=== PATIENT | female | born 1965 | race Caucasian/White ===

== ENCOUNTER 2017-03-01 17:16 | Emergency (ER) | payer OTHER ==
[~2017-03-01] VITALS: Ht 160 cm; Wt 59.0 kg
[~2017-03-01 17:16] MED LIST: ALPR0.5T PO; CIPR500T4 PO; CLON2TAB3 PO; DICY20TA59 PO; FLUO40CA10 PO; GABA300C PO; HYDR-3498 PO; HYDR-902 PO; METO10TA92 PO; NAPR-260 PO; NAPR-685 PO; OMEP20CA16 PO; TOPI50TA86 PO; TRAM50TA2 PO; TRAZ50TA18 PO; ZOLP5TAB PO
[2017-03-01 17:22] VITALS: Ht 160 cm; Wt 59.0 kg
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
[2017-03-01] MEDS ORDERED: ASPIRIN 325 MG TAB PO STA (19:42)
[2017-03-01] MEDS ORDERED: morphine 4 MG/ML VIAL IV STA (19:50)
[2017-03-01] MEDS ORDERED: LORAZEPAM 2 MG INJ IV ONE (20:00)
[2017-03-01] MEDS ORDERED: ALPRAZOLAM 1 MG TAB PO ONE (20:00)
[2017-03-01 20:15] LABS: BASOPHILS % 0.6 % (0.0-2.0); EOSINOPHILS % 0.3 % (0.0-7.0); HEMATOCRIT 41.7 % (37.0-47.0); HEMOGLOBIN 14.4 g/dl (12.0-16.0); LYMPHOCYTES # 1.1 10^3/ul (0.8-2.9); LYMPHOCYTES % 16.4 % (15.0-51.0); MEAN CORPUSCULAR HEMOGLOBIN 30.1 pg (29.0-33.0); MEAN CORPUSCULAR HGB CONC 34.5 g/dl (32.0-37.0); MEAN CORPUSCULAR VOLUME 87.2 fl (82.0-101.0); MEAN PLATELET VOLUME 10.9 fl (7.4-10.4); MONOCYTE # 0.3 10^3/ul (0.3-0.9); MONOCYTES % 4.2 % (0.0-11.0); NEUTROPHIL # 5.4 10^3/ul (1.6-7.5); NEUTROPHILS % 78.4 % (39.0-77.0); PLATELET COUNT 307 10^3/UL (140-415); RED BLOOD COUNT 4.78 10^6/ul (4.20-5.40); RED CELL DISTRIBUTION WIDTH 12.6 % (11.5-14.5); WHITE BLOOD COUNT 6.9 10^3/ul (4.8-10.8)
[2017-03-01 20:30] LABS: INR 0.9; PROTIME 12.1 Sec (12.2-14.2); PT RATIO 0.9
[2017-03-01 20:32] LABS: PARTIAL THROMBOPLASTIN TIME 27.3 Sec (25.0-35.0)
[2017-03-01 20:33] LABS: ANION GAP 24 (8-16); BLOOD UREA NITROGEN 8 mg/dl (7-20); CALCIUM 10.5 mg/dl (8.4-10.2); CARBON DIOXIDE 25 mmol/L (21-31); CHLORIDE 99 mmol/L (97-110); GLUCOSE 114 mg/dl (70-220); POTASSIUM 3.8 mmol/L (3.5-5.1); SODIUM 144 mmol/L (135-144)
[2017-03-01] MEDS ORDERED: TOPI-25 PO (20:42)
[2017-03-01] MEDS ORDERED: GABA300C16 PO (20:42)
[2017-03-01] MEDS ORDERED: ATEN-51 PO (20:43)
[2017-03-01 20:46] LABS: TROPONIN-I < 0.012 ng/ml (0.00-0.12)
--- NOTE | 2017-03-01 21:10 | RADRPT ---
PROCEDURE: XR Chest. CLINICAL INDICATION: Shortness of breath. Chest pain. TECHNIQUE: Single frontal chest x-ray. COMPARISON: Chest radiograph 12/27/2014. FINDINGS: The cardiomediastinal silhouette is unremarkable. Aortic atherosclerotic vascular calcifications are identified. Mild left basilar atelectasis is noted. No pneumothorax, pleural effusion or consolidation is seen. No acute osseous abnormality is noted. IMPRESSION: 1. Mild left basilar atelectasis. 2. Mild aortic atherosclerosis. 3. Otherwise no acute cardiopulmonary abnormality. RPTAT: HH .Arcadio Moreno MD, Date Time Electronically viewed and signed by .Arcadio Moreno MD, on 03/01/2017 21:10 .N/
[2017-03-01] MEDS ORDERED: HYDR25CA PO (21:44)
[2017-03-01] MEDS ORDERED: RANI150T9 PO (21:44)
[2017-03-01 22:07] VITALS: BP 110/78; PULSE 61; RESP 18; TEMP 98
== END 2017-03-01 22:37 | disposition home or self-care (01) ==
LOC: E/R 17:16
DX: R07.89 Other chest pain (principal); F41.9 Anxiety disorder, unspecified; I10 Essential (primary) hypertension; J45.909 Unspecified asthma, uncomplicated
CPT/HCPCS: 71010; 80048; 84484; 85025; 85610; 85730; 93005; 96374; 96375; Z7502; J2060; J2270

== ENCOUNTER 2018-04-03 12:10 | Emergency (ER) | END 2018-04-03 16:34 | disposition home or self-care (01) ==

== ENCOUNTER 2018-07-22 16:00 | Emergency (ER) | END 2018-07-22 20:02 | disposition home or self-care (01) ==

== ENCOUNTER 2018-10-23 14:39 | Emergency (ER) | payer SELFPAY ==
[~2018-10-23] VITALS: Ht 167.6 cm; Wt 66.8 kg
[~2018-10-23 14:39] MED LIST changes: +ACET500C5 PO; -ALPR0.5T PO; +ATEN-51 PO; -CIPR500T4 PO; -CLON2TAB3 PO; -DICY20TA59 PO; -FLUO40CA10 PO; -GABA300C PO; +GABA300C16 PO; -HYDR-3498 PO; -HYDR-902 PO; +HYDR25CA PO; +IBUP-1542 PO; -METO10TA92 PO; -NAPR-260 PO; -NAPR-685 PO; -OMEP20CA16 PO; +RANI150T35 PO; +TOPI100T11 PO; -TOPI50TA86 PO; -TRAZ50TA18 PO; -ZOLP5TAB PO
[2018-10-23 14:43] VITALS: Ht 167.6 cm; Wt 66.8 kg
[2018-10-23] MEDS ORDERED: LORAZEPAM 1 MG TAB PO ONE (17:00)
--- NOTE | 2018-10-23 18:09 | ERD ---
ER Documentation Chief Complaint Chief Complaint Complains of being anxious Hx of Anxiety HPI 53-year-old female coming in today with Chief Complaint: Anxiety History of Present Illness: Patient coming in today with complaint of anxiety for 3 days. Reports history of anxiety and panic attacks patient reporting no significant triggers or stressors.. States she is no longer have medication that she usually takes for anxiety. Review of systems: All systems were reviewed and are negative except for what is indicated in the history of present illness. Past Medical History: Hypertension surgical history includes clip placed on brain due to aneurysm; Social History: Patient denies tobacco, alcohol, elicit drug use Medications: None Allergies: NKDA Social Concerns: Denies ROS All systems reviewed and are negative except as per history of present illness. Medications Home Meds Active Scripts Lorazepam* (Lorazepam*) 1 Mg Tablet, 1 MG PO Q8, #10 TAB Prov:JENN SHAW NP 10/23/18 Acetaminophen* (Tylophen*) 500 Mg Capsule, 1 CAP PO Q6H PRN for PAIN AND OR ELEVATED TEMP, #20 CAP Prov:BILL CRUZ PA-C 07/22/18 Tramadol HCl (Tramadol HCl) 50 Mg Tablet, 50 MG PO Q4 PRN for PAIN, #15 TAB Prov:YEIMY BORDEN MD 04/03/18 Ibuprofen* (Motrin*) 600 Mg Tab, 600 MG PO Q6, #20 TAB Prov:YEIMY BORDEN MD 04/03/18 Hydroxyzine Pamoate* (Vistaril*) 25 Mg Capsule, 25 MG PO Q8 for ANXIETY, #10 CAP Prov:MONICA GUERRERO DO 03/01/17 Ranitidine Hcl* (Zantac*) 150 Mg Tablet, 150 MG PO BID, #60 TAB Prov:MONICA GUERRERO DO 03/01/17 Reported Medications Atenolol* (Atenolol*) 25 Mg Tablet, 50 MG PO DAILY, #30 TAB 03/01/17 Gabapentin* (Gabapentin*) 300 Mg Capsule, 300 MG PO DAILY, #30 CAP 03/01/17 Topiramate* (Topiramate*) 100 Mg Tablet, 100 MG PO DAILY, TAB 03/01/17 Allergies Allergies: Coded Allergies: No Known Allergy (Verified , 03/01/17) PMhx/Soc History of Surgery: Yes (CLIP OF CEREBRAL ANEURISM) Anesthesia Reaction: No Hx Neurological Disorder: Yes ([place], CEREBRAL ANEURISM) Hx Respiratory Disorders: No Hx Cardiac Disorders: Yes (HTN) Hx Psychiatric Problems: No Hx Miscellaneous Medical Probl: No Hx Alcohol Use: No Hx Substance Use: No Hx Tobacco Use: No Smoking Status: Never smoker FmHx Family History: No diabetes, No coronary disease Physical Exam Vitals Vital Signs Date Temp Pulse Resp B/P (MAP) Pulse Ox O2 O2 Flow FiO2 Time Delivery Rate 10/23/18 97.5 70 20 122/80 98 Room Air 19:40 (94) 10/23/18 97.6 102 20 140/77 98 14:43 (98) Physical Exam Const: No acute distress, patient appears anxious, hands with mild trembling Head: Atraumatic Eyes: Normal Conjunctiva ENT: Normal External Ears, Nose and Mouth. Neck: Full range of motion. No meningismus. Resp: Clear to auscultation bilaterally Cardio: Regular rate and rhythm, no murmurs Abd: Soft, non tender, non distended. Normal bowel sounds Skin: No petechiae or rashes Back: No midline or flank tenderness Ext: No cyanosis, or edema Neur: Awake and alert. Neuro exam unremarkable. No neuro deficits noted. Patient speaking in clear sentences. Psych: Normal Mood and Affect Results 24 hrs Laboratory Tests Test 10/23/18 17:20 Free Thyroxine Index 1.44 ug/ml Thyroxine (T4) 5.2 ug/dl Triiodothyronine (T3) Uptake 27.7 % Current Medications Medications Dose Sig/Marcelino Start Time Status Last (Trade) Ordered Route PRN Stop Time Admin Dose Reason Admin Lorazepam 1 mg ONCE ONCE 10/23/18 DC 10/23/18 (Ativan) PO 17:00 17:11 10/23/18 17:01 Lorazepam 1 mg ONCE ONCE 10/23/18 DC 10/23/18 (Ativan) IM 19:30 19:36 10/23/18 19:31 Procedures/MDM ED course includes a thorough examination and history. ED course includes labs; thyroid panel. ED course includes medication administration; Ativan for anxiety. ED course includes EKG to rule out cardiac rhythm abnormalities Low suspicion for life-threatening medical emergency or medical emergency that requires hospitalization. Otherwise healthy patient presenting with constellation of symptoms likely representing uncomplicated anxiety as characterized by history, physical exam findings, LABS, EKG. thyroid panel showing mild decrease in T4 not significant for thyroid toxicosis. EKG without arrhythmia. EKG completed at 1706: Rate/Rhythm: Normal Sinus Rhythm QRS, ST, T-waves: No changes consistent w/ acute ischemia Impression: No evidence of ischemia or arrhythmia Patient reassessment at 1910: Patient reporting no decrease anxiety after medication administration. Will give 1 more dose of Ativan before discharge. Tremors no longer present. Vital signs are stable, no tachycardia. Patient educated on stress relief things to try at home. Translation services used BY by director data management agent [id number]. No neuro deficit. Patient speaking in clear sentences, result verbalizes understanding of discharge instructions. No respiratory distress, otherwise relatively well appearing and nontoxic. Patient educated on diagnoses, prescriptions, follow-up care, return precaut ions. Strict return precautions given for worsening condition; questions answered discharge. Disposition for discharge with followup in 2-3 days with PCP/clinic for reevaluation of symptoms and for further workup if indicated.. Departure Diagnosis: Primary Impression: Anxiety Additional Impression: Anxiety attack Condition: Stable JENN SHAW NP Oct 23, 2018 18:09
[2018-10-23] MEDS ORDERED: LORA1TAB PO (19:25)
[2018-10-23] MEDS ORDERED: LORAZEPAM 2 MG INJ IM ONE (19:30)
[2018-10-23 19:40] VITALS: BP 122/80; PULSE 70; RESP 20
== END 2018-10-23 19:45 | disposition home or self-care (01) ==
LOC: FTE 14:39
DX: F41.9 Anxiety disorder, unspecified (principal); I10 Essential (primary) hypertension
CPT/HCPCS: 84436; 84479; 93005; 96372; 99284; J2060